=== PATIENT | male | born 1990 | race American Indian/Alaskan Native ===

== ENCOUNTER 2019-08-02 17:47 | Emergency (ER) | payer SELFPAY ==
[2019-08-02 17:53] VITALS: BP 107/72
[2019-08-02] MEDS ORDERED: TETANUS,DIPH,PERTUSS(ACELL) VACCINE 0.5 ML SYRINGE IM ONE (18:41)
--- NOTE | 2019-08-02 18:47 | Emergency Department Report ---
[place] Lac[place] [facility] Chief Complaint: Wound/Laceration Stated Complaint: PUNCTURE WOUND Time Seen by Provider: 08/02/19 18:41 Occurred When: Today Tetanus Status: Not up to Date Laceration Symptoms: Yes Pain, No Foreign Body Sensation, No Numbness, No Weakness Other History: 29-year-old -[place] male presents to the emergency room complaint of a left thigh puncture wound from a knife. Patient states he was doing some yard work when he was using a knife and stepped into his left inner thigh. Patient states he is unaware of his last tetanus shot. Patient reports his pain is a 2 out of 10. Patient has no past medical history currently takes no medications on a daily basis and has no known drug allergies. ED Review of Systems ROS: Stated complaint: PUNCTURE WOUND Other details as noted in HPI ED Past Medical Hx - Past Medical History Previous Medical History?: No - Surgical History Past Surgical History?: No - Social History Smoking Status: Never Smoker Substance Use Type: None - Medications Home Medications: Home Medications Medication Instructions Recorded Confirmed Last Taken Type cephALEXin [Keflex] 500 mg PO Q12HR 7 Days #14 cap 08/02/19 Unknown Rx Laceration Physical Exam - Exam General: Vital signs noted. No distress. Alert and acting appropriately. Wound Length (cm): 1 Laceration Location: Lower Extremity (Left inner thigh) Laceration Exam: Yes Normal Distal CMS, No Foreign Body, No Exposed Tendon, Vessel, or Nerve, No Tendon Injury ED Course Vital Signs 08/02/19 17:50 Temperature 98.5 F Pulse Rate 82 Respiratory 20 Rate Blood Pressure 107/72 O2 Sat by Pulse 87 Oximetry ED Medical Decision Making - Medical Decision Making 29-year-old -[place] male presents to the emergency room complaint of a left thigh puncture wound from a knife. Patient states he was doing some yard work when he was using a knife and stepped into his left inner thigh. Patient states he is unaware of his last tetanus shot. Patient reports his pain is a 2 out of 10. Patient has no past medical history currently takes no medications on a daily basis and has no known drug allergies. Boostx for tetanus. Wound cleaning with Dermabond and Steri-Strips as repair. Patient be discharged home Keflex p.o. twice daily for 7 days. Patient to take [id number] Tylenol or ibuprofen as pain management. Critical care attestation.: If time is entered above; I have spent that time in minutes in the direct care of this critically ill patient, excluding procedure time. ED Disposition Clinical Impression: Puncture wound of thigh Disposition: [id number] TO HOME OR SELFCARE Is pt being admited?: No Does the pt Need Aspirin: No Condition: Stable Instructions: Absorbable Suture Care (ED), Skin Adhesive Care (ED) Additional Instructions: Keflex by mouth twice daily for 7 days. Patient to take [id number] Tylenol or ibuprofen as pain management. Prescriptions: cephALEXin [Keflex] 500 mg PO Q12HR 7 Days #14 cap Referrals: Your,Primary Care provider [Other] - 3-5 Days
== END 2019-08-02 19:16 | disposition home or self-care (01) ==
LOC: ED 17:47
DX: S71.132A Puncture wound without foreign body, left thigh, initial encounter (principal); S71.112A Laceration without foreign body, left thigh, initial encounter; Z79.899 Other long term (current) drug therapy; W26.0XXA Contact with knife, initial encounter; Y93.89 Activity, other specified; Y92.096 Garden or yard of other non-institutional residence as the place of occurrence of the external cause; Y99.8 Other external cause status
CPT/HCPCS: 90471; 90715; 99283